=== PATIENT | male | born 1990 | race Caucasian/White ===

== ENCOUNTER 2019-07-20 04:20 | Inpatient (IN) | payer MEDICAID, OTHER ==
[2019-07-20] VITALS (7 sets, daily range): BP systolic 117–148; BP diastolic 81–98
[~2019-07-20] VITALS: Ht 177.8 cm; Wt 99.3 kg
[2019-07-20] MEDS ORDERED: NACL 0.9% 1,000 ML IV ONE (04:25)
[2019-07-20 04:37] LABS: BASOPHILS # (AUTO) 0.1 K/uL (0.00-0.22); BASOPHILS % (AUTO) 0.5 % (0.0-2.0); EOSINOPHILS # (AUTO) 0.1 K/uL (0-0.4); EOSINOPHILS % (AUTO) 1.1 % (0.0-4.0); HEMATOCRIT 45.6 % (36-52); HEMOGLOBIN 15.6 g/dL (12.0-18.0); LYMPHOCYTES # (AUTO) 3.8 K/uL (2.0-11.5); LYMPHOCYTES % (AUTO) 33.7 % (20.5-51.1); MEAN CORPUSCULAR HEMOGLOBIN 30 pg (27-31); MEAN CORPUSCULAR HGB CONC 34 g/dL (33-37); MEAN CORPUSCULAR VOLUME 88.4 fL (80-94); MONOCYTES # (AUTO) 0.6 K/uL (0.8-1.0); MONOCYTES % (AUTO) 5.4 % (1.7-9.3); NEUTROPHILS # (AUTO) 6.8 K/uL (1.8-7.7); NEUTROPHILS % (AUTO) 59.3 % (42.2-75.2); PLATELET COUNT (AUTO) 261 K/uL (140-450); RED BLOOD CELL COUNT(AUTO) 5.16 MIL/uL (4.20-6.10); RED CELL DISTRIBUTION WIDTH 13.2 % (11.6-13.7); WHITE BLOOD COUNT (AUTO) 11.4 K/uL (4.8-10.8)
--- NOTE | 2019-07-20 04:43 | NUR ---
PATIENT PRESENTS TO ED BIBA FROM HOME. PER , PT BECAME STIFF AND WAS SHAKING IN BED, FELL TO FLOOR. LASTED 15 MINUTES. PT FOUND ON LEFT SIDE ON FLOOR BY EMS; ORAL SECRETIONS NOTED. NO ORAL TRAUMA, INCONTINENCE. PT ALOC ON SCENE. PT ARRIVES AWAKE, A/O TO PERSON, DATE, PLACE. CONFUSION/DISOREINTATION ABOUT EVENT. NO PRIOR HX OF SEIZURES. PMH-- DENIES RX-- DENIES . PT IN BED WITH SEIZURE PADS . DENIES N/V/D; SKIN IS PINK/WARM/DRY; AAOX4; LUNGS CLEAR BL; HR EVEN AND REGULAR; PT DENIES ANY FEVER, CP, SOB, OR COUGH AT THIS TIME; PATIENT STATES PAIN OF 0/10 AT THIS TIME; VSS; PATIENT POSITIONED FOR COMFORT; HOB ELEVATED; BEDRAILS UP X2; BED DOWN. ER MD MADE AWARE OF PT STATUS.
[2019-07-20 04:46] LABS: ANION GAP 23.4 (8-16); CARBON DIOXIDE 18.5 mmol/L (21-32); CHLORIDE 101 mmol/L (98-107); CREATININE 1.1 mg/dL (0.7-1.3); GFR ARICAN-AMERICAN 101 mL/min (>90); GLUCOSE 156 mg/dL (74-106); POTASSIUM 3.9 mmol/L (3.5-5.1); SODIUM SERUM 139 mmol/L (136-145); UREA NITROGEN, BLOOD 9 mg/dL (7-18)
[2019-07-20 04:52] LABS: ALBUMIN 4.1 g/dL (3.4-5.0); ASPARTATE AMINOTRANSFERASE 30 U/L (15-37); TOTAL BILIRUBIN 0.5 mg/dL (0.0-1.0)
[2019-07-20 04:54] LABS: ACETAMINOPHEN < 0.5 ug/ml (10-30); SALICYLATE < 2.8 mg/dL (2.8-20.0)
--- NOTE | 2019-07-20 04:55 | NUR ---
PT IN CT
[2019-07-20 05:16] LABS: CREATINE KINASE MB 3.2 ng/mL (0-3.6)
--- NOTE | 2019-07-20 05:18 | NUR ---
PT BACK FROM CT
[2019-07-20 05:20] LABS: BILIRUBIN,URINE NEGATIVE (NEGATIVE); BLOOD, URINE 2+ (NEGATIVE); COLOR,URINE YELLOW (YELLOW); LEUKOCYTE ESTERASE ,URINE NEGATIVE (NEGATIVE); NITRITE, URINE NEGATIVE (NEGATIVE); UGLUCOSE NEGATIVE (NEGATIVE)
[2019-07-20 05:24] LABS: BARBITURATE, URINE NEG. ng/ml (NEG <=200); BENZODIAZEPINE, URINE NEG. ng/mL (NEG <=200); CANNABINOID, URINE NEG. ng/mL (NEG <=50); COCAINE, URINE NEG. ng/mL (NEG <=300); OPIATE, URINE NEG. ng/mL (NEG <=2000); PHENCYCLIDINE SCREEN,URINE NEG. ng/mL (NEG <=25)
[2019-07-20] MEDS ORDERED: ACETAMINOPHEN 325 MG TAB PO PRN (05:45)
[2019-07-20] MEDS ORDERED: HYDROcodone/APAP 5/325 MG 1 TAB TAB PO PRN (05:45)
[2019-07-20] MEDS ORDERED: DOCUSATE SODIUM 100 MG GELCAP PO PRN (05:45)
[2019-07-20] MEDS ORDERED: ONDANSETRON 4 MG/2 ML VIAL IM/IVP PRN (05:45)
[2019-07-20 05:46] LABS: APPEARANCE,URINE SLIGHTLY HAZY (CLEAR)
[2019-07-20 05:47] LABS: RBC,URINE 0-5 /HPF (0-5); WBC,URINE 0-5 /HPF (0-5)
--- NOTE | 2019-07-20 06:10 | NUR ---
ADMITTING MD AT BEDSIDE. PT APPEARS TO BE IN NO DISTRESS AT THIS TIME. VSS. NO CHANGES FROM PREVIOUS ASSESSMENT. WILL CONTINUE TO MONITOR.
--- NOTE | 2019-07-20 06:30 | NUR ---
RECD. FROM ER VIA BED, AWAKE, A/OX4, MARTINIQUAIS SPEAKING. RESPIRATION EVEN AND UNLABORED. IV SALINE LOCK AT THE RIGHT AC, G18, PATENT AND INTACT. PER ER NURSE REPORT PATIENT HAD SEIZURE FOR THE FIRST TIME LASTING 15 MINUTES AT HOME. PATIENT IS ABLE TO AMBULATORY AND INDEPENDENT. DENIES PAIN 0/10. SR ON TELEMETRY MONITORING, HR - 65. VS STABLE. WILL ENDORSED TO AM NURSE FOR ADMISSION.
--- NOTE | 2019-07-20 06:46 | NUR ---
Patient will be admitted to care of DR. REYNOLDS. Admited to TELE. Will go to [facility]. Belongings list completed. Report to RANDY LEÓN.
--- NOTE | 2019-07-20 07:20 | NUR ---
ENDORSED TO AVEL OROZCO FOR ADMISSION AND CONTINUITY OF CARE.
--- NOTE | 2019-07-20 07:21 | NUR ---
Received bedside report from pm nurse Wendy. Pt resting in bed, aaox4, verbally responsive, at bedside with pt. Right AC IV saline lock intact & asymptomatic. Call light within reach. Bed alarm on.
[2019-07-20] MEDS ORDERED: NACL 0.9% 1,000 ML IV SCH (08:15)
[2019-07-20] MEDS: NACL 0.9% 1,000 ML IV SCH ×2 (08:48→18:22)
[2019-07-20] MEDS: levETIRAcetam 1,000 MG in NACL 0.9% 100 ML IV SCH ×2 (09:51→21:12)
--- NOTE | 2019-07-20 10:43 | NUR ---
Pt noted with intermittent dry cough, diminished lung sounds to left lower lung, all other lobes clear. Pt requests for cough syrup. Dr. Donis notified & will relay message to Dr Zelaya.
[2019-07-20 10:53] LABS: CHOL/HDL RATIO 4.9 (1-4.5); MAGNESIUM 2.2 mg/dL (1.8-2.4); PHOSPHORUS 3.3 mg/dL (2.5-4.9)
[2019-07-20 10:54] LABS: THYROID STIMULATING HORMONE 1.57 uIU/mL (0.34-3.74)
[2019-07-20] MEDS ORDERED: LACTULOSE 20 GM/30 ML UDC PO SCH (11:00)
--- NOTE | 2019-07-20 11:30 | NUR ---
Pt asleep in bed, respirations even & nonlabored, arousable by auditory stimuli. Pt drowsy, but able to follow commands & able to answer questions appropriately. IV Keppra infusion completed. Bed alarm on. Call light within reach. Right AC IV intact with ongoing NS @ 100ml/h.
--- NOTE | 2019-07-20 14:05 | NUR ---
Pt asleep in bed, respirations even & nonlabored, arousable by auditory stimuli. Pt aaox4, neuro check done. at bedside. Call light within reach.
--- NOTE | 2019-07-20 15:41 | NUR ---
FNS CONSULT HAS BEEN RECEIVED. PATIENT HAS BEEN SCREENED AND CATEGORIZED HIGH NUTRITION RISK. PATIENT WILL BE SEEN WITHIN 1-2 DAYS OF ADMISSION. 07/20/19-07/21/[address]
--- NOTE | 2019-07-20 19:25 | NUR ---
Report given to pm nurse Todd. Pt resting in bed, no signs of distress. at bedside.
--- NOTE | 2019-07-20 19:30 | NUR ---
RECEIVED BEDSIDE REPORT FROM DAY SHIFT NURSE. PATIENT IS AWAKE, ALERT, AND COOPERATIVE. RESPIRATION EVEN UNLABORED ON ROOM AIR. NO DISTRESS NOTED. SKIN IS WARM AND DRY. IV PATENT AND INTACT. DENIES PAIN. FAMILY AT BEDSIDE. ALL SAFETY MEASURES IN PLACE. PLAN OF CARE WAS DISCUSSED. BED IS AT LOW POSITION. CALL LIGHT WITHIN REACH AND VERBALIZES ITS USE. WILL CONTINUE TO MONITOR.
--- NOTE | 2019-07-20 20:00 | NUR ---
INITIAL ASSESSMENT DONE. VITALS WERE TAKEN. PATIENT IN STABLE CONDITION. NO SEIZURE NOTED AT THIS TIME. WILL CONTINUE TO MONITOR.
--- NOTE | 2019-07-20 21:00 | NUR ---
ALL SCHEDULED MEDS WERE GIVEN PER ORDER. NO ASE NOTED. WILL CONTINUE TO MONITOR.
[2019-07-20] MEDS: LACTULOSE 20 GM/30 ML UDC PO SCH (21:12)
[2019-07-20 21:55] LABS: PROTHROMBIN TIME 9.7 secs (10.8-13.4)
--- NOTE | 2019-07-20 22:30 | NUR ---
PATIENT SLEEPING RESPIRATION EVEN UNLABORED ON ROOM AIR. NO DISTRESS NOTED. CALL LIGHT WITHIN REACH. WILL CONTINUE TO MONITOR.
[2019-07-21] VITALS: BP 117/75
--- NOTE | 2019-07-21 | NUR ---
VITALS WERE TAKEN. PATIENT IN STABLE CONDITION. NO DISTRESS NOTED. WILL CONTINUE TO MONITOR.
--- NOTE | 2019-07-21 01:56 | NUR ---
CHECKED ON PATIENT. PATIENT SLEEPING RESPIRATION EVEN UNLABORED ON ROOM AIR. NO DISTRESS NOTED. WILL CONTINUE TO MONITOR.
[2019-07-21] MEDS: NACL 0.9% 1,000 ML IV SCH ×2 (03:52→14:00)
[2019-07-21 04:00] VITALS: BP 160/55
--- NOTE | 2019-07-21 04:06 | NUR ---
VITALS WERE TAKEN. PATIENT IN STABLE CONDITION. NO DISTRESS NOTED. SITTER AT BEDSIDE. WILL CONTINUE TO MONITOR.
[2019-07-21 06:07] LABS: T4 (THYROXINE) 6.1 ug/dL (4.5-12.0)
--- NOTE | 2019-07-21 07:12 | NUR ---
ENDORSED PATIENT TO DAY SHIFT NURSE. PATIENT IN STABLE CONDITION.
[2019-07-21 07:21] LABS: BASOPHILS % (AUTO) 0.3 % (0.0-2.0); EOSINOPHILS # (AUTO) 0.1 K/uL (0-0.4); EOSINOPHILS % (AUTO) 1.1 % (0.0-4.0); HEMATOCRIT 40.5 % (36-52); HEMOGLOBIN 13.9 g/dL (12.0-18.0); LYMPHOCYTES # (AUTO) 1.9 K/uL (2.0-11.5); MEAN CORPUSCULAR HEMOGLOBIN 30 pg (27-31); MEAN CORPUSCULAR HGB CONC 34 g/dL (33-37); MEAN CORPUSCULAR VOLUME 87.4 fL (80-94); MONOCYTES # (AUTO) 0.5 K/uL (0.8-1.0); MONOCYTES % (AUTO) 5.9 % (1.7-9.3); NEUTROPHILS # (AUTO) 5.5 K/uL (1.8-7.7); NEUTROPHILS % (AUTO) 68.7 % (42.2-75.2); PLATELET COUNT (AUTO) 222 K/uL (140-450); RED BLOOD CELL COUNT(AUTO) 4.63 MIL/uL (4.20-6.10); RED CELL DISTRIBUTION WIDTH 13.1 % (11.6-13.7)
--- NOTE | 2019-07-21 07:40 | NUR ---
Received report from mold shifter nurse. Pt in bed. no C/O pain. no distress. Call light in reach.
[2019-07-21 07:56] LABS: ANION GAP 12.8 (8-16); CARBON DIOXIDE 26.8 mmol/L (21-32); CREATININE 0.7 mg/dL (0.7-1.3); POTASSIUM 3.6 mmol/L (3.5-5.1)
[2019-07-21 08:00] VITALS: BP 123/89
[2019-07-21 08:04] LABS: MAGNESIUM 1.8 mg/dL (1.8-2.4); PHOSPHORUS 2.7 mg/dL (2.5-4.9)
[2019-07-21] MEDS ORDERED: MAG SULF 2000 MG/WATER PREMIX 50 ML IV SCH (09:00)
--- NOTE | 2019-07-21 09:00 | NUR ---
Spoke with Dr Zelaya. Reported that phosphate and magnesium were normal. Dr Zelaya requested to hold off on magnesium sulfate. and K Phosphate.
[2019-07-21] MEDS: LACTULOSE 20 GM/30 ML UDC PO SCH (09:09)
[2019-07-21] MEDS: levETIRAcetam 1,000 MG in NACL 0.9% 100 ML IV SCH (09:10)
[2019-07-21] MEDS ORDERED: POTASSIUM PHOSPHATE 15 MM in NACL 0.9% 250 ML IV SCH (11:00)
--- NOTE | 2019-07-21 11:00 | NUR ---
Pt resting in bed. No signs of distress. No C/O pain. Call light in reach.
[2019-07-21 12:00] VITALS: BP 128/86
--- NOTE | 2019-07-21 13:47 | NUR ---
Pt resting in bed. No signs of distress. No C/O pain. Call light in reach.
[2019-07-21] MEDS ORDERED: LEVE750T3 PO (14:07)
[2019-07-21] MEDS ORDERED: LACT10SO11 PO (14:07)
--- NOTE | 2019-07-21 14:34 | NUR ---
07/21/19 RD INITIAL ASSESSMENT COMPLETED PLEASE REFER TO NUTRITION ASSESSMENT UNDER CARE ACTIVITY FOR ESTIMATED NUTRITIONAL NEEDS. 1. CONTINUE REGULAR DIET TOLERATED 2. RD PROVIDED FOOD AND DRUG INTERACTION EDUCATION 3. RD TO FOLLOW-UP 5-7 DAYS, LOW RISK [address]FR[address]
--- NOTE | 2019-07-21 15:45 | NUR ---
Discharge instructions given to patient via [employer] cad technician, Home Health Scheduler Jay # [id number]. IV line removed. No signs of bleeding. Heart monitor removed. will take him home at 1630. Pt stable. No complains of pain.
--- NOTE | 2019-07-21 16:30 | NUR ---
Pt walked to the entrance with a steady gait. Belonging with patient. No complains of pain.
== END 2019-07-21 16:30 | disposition home or self-care (01) | DRG 53 ==
LOC: MED 04:20 → MTU 05:47
PROVIDERS: ADMIT Family Medicine; ATTEND Family Medicine
DX: G40.89 Other seizures (principal); R65.11 Systemic inflammatory response syndrome (SIRS) of non-infectious origin with acute organ dysfunction; K72.90 Hepatic failure, unspecified without coma; E66.9 Obesity, unspecified; Z83.3 Family history of diabetes mellitus; Z68.31 Body mass index [BMI] 31.0-31.9, adult; E78.5 Hyperlipidemia, unspecified; Z82.49 Family history of ischemic heart disease and other diseases of the circulatory system
CPT/HCPCS: 36415; 36600; 70450; 71045; 76770; 80048; 80053; 80305; 81001; 82140; 82150; 82550; 82553; 82803; 83036; 83605; 83655; 83690; 83735; 83880; 84100; 84436; 84443; 84479; 84484; 84550; 85025; 85610; 85730; 87040; 87081; 93005; 93880; 95816; 99285; G0480; G0482; J1953; J7030; Q0092

== ENCOUNTER 2020-09-13 23:30 | Emergency (ER) | payer MEDICAID ==
[~2020-09-13] VITALS: Ht 154.9 cm; Wt 86.2 kg
[~2020-09-13 23:30] MED LIST: LACT10SO11 PO; LEVE750T3 PO
--- NOTE | 2020-09-13 23:31 | NUR ---
BIBA TAKEN TO BED #7
--- NOTE | 2020-09-13 23:35 | NUR ---
PT BIBA s/p tonic clonic seizure at home. per EMS patient was in post ictal state for 5 mins. pt currently aox4. no s/s of distress. pt reports having one seizure episode last year and was on keppra for some time. Patient not currently on any meds. Patient denies other medical hx
[2020-09-13 23:38] VITALS: BP 134/90
[2020-09-13] MEDS ORDERED: NACL 0.9% 1,000 ML IV ONE (23:55)
--- NOTE | 2020-09-13 23:58 | NUR ---
Patient being evaluated by Dr Calderon
[2020-09-14] MEDS ORDERED: levETIRAcetam 1,000 MG in NACL 0.9% 100 ML IV ONE ×2
[2020-09-14] MEDS ORDERED: levETIRAcetam 100 MG/ML VIAL IV ONE (00:18)
[2020-09-14 00:29] LABS: BASOPHILS # (AUTO) 0.1 K/uL (0.00-0.22); BASOPHILS % (AUTO) 0.8 % (0.0-2.0); EOSINOPHILS # (AUTO) 0.2 K/uL (0-0.4); EOSINOPHILS % (AUTO) 2.8 % (0.0-4.0); HEMATOCRIT 42.1 % (36-52); HEMOGLOBIN 14.6 g/dL (12.0-18.0); MEAN CORPUSCULAR HEMOGLOBIN 30 pg (27-31); MEAN CORPUSCULAR HGB CONC 35 g/dL (33-37); MEAN CORPUSCULAR VOLUME 85.9 fL (80-94); MONOCYTES # (AUTO) 0.5 K/uL (0.8-1.0); MONOCYTES % (AUTO) 6.4 % (1.7-9.3); NEUTROPHILS # (AUTO) 4.6 K/uL (1.8-7.7); PLATELET COUNT (AUTO) 266 K/uL (140-450); RED BLOOD CELL COUNT(AUTO) 4.91 MIL/uL (4.20-6.10); RED CELL DISTRIBUTION WIDTH 12.9 % (11.6-13.7); WHITE BLOOD COUNT (AUTO) 8.5 K/uL (4.8-10.8)
[2020-09-14 00:39] LABS: BARBITURATE, URINE NEGATIVE ng/ml (NEG <=200); BENZODIAZEPINE, URINE NEGATIVE ng/mL (NEG <=200); CANNABINOID, URINE NEGATIVE ng/mL (NEG <=50); COCAINE, URINE NEGATIVE ng/mL (NEG <=300); OPIATE, URINE NEGATIVE ng/mL (NEG <=2000); PHENCYCLIDINE SCREEN,URINE NEGATIVE ng/mL (NEG <=25)
[2020-09-14 00:39] LABS: ALBUMIN 4.2 g/dL (3.4-5.0); ANION GAP 12.6 (8-16); ASPARTATE AMINOTRANSFERASE 26 U/L (15-37); CARBON DIOXIDE 30.1 mmol/L (21-32); CHLORIDE 101 mmol/L (98-107); CREATININE 1.1 mg/dL (0.6-1.3); GFR ARICAN-AMERICAN 100 mL/min (>90); GLUCOSE 107 mg/dL (74-106); POTASSIUM 3.7 mmol/L (3.5-5.1); SODIUM SERUM 140 mmol/L (136-145); TOTAL BILIRUBIN 0.4 mg/dL (0.0-1.0); UREA NITROGEN, BLOOD 12 mg/dL (7-18)
[2020-09-14 00:40] LABS: ACETAMINOPHEN < 0.5 ug/ml (10-30); SALICYLATE < 2.8 mg/dL (2.8-20.0)
--- NOTE | 2020-09-14 00:50 | NUR ---
Dr. Calderon examining patient.
[2020-09-14 02:07] VITALS: BP 147/96
--- NOTE | 2020-09-14 02:08 | NUR ---
Patient discharged with v/s stable. Written and verbal after care instructions given and explained. Patient alert, oriented and verbalized understanding of instructions. Ambulatory with steady gait. All questions addressed prior to discharge. ID band removed. Patient advised to follow up with PMD. Rx of Kejuliano given. Patient educated on indication of medication including possible reaction and side effects. Opportunity to ask questions provided and answered.
== END 2020-09-14 02:08 | disposition home or self-care (01) ==
LOC: MED 23:30
DX: R56.9 Unspecified convulsions (principal); R03.0 Elevated blood-pressure reading, without diagnosis of hypertension; Z79.899 Other long term (current) drug therapy
CPT/HCPCS: 36415; 80053; 80305; 82948; 85025; 93005; 96360; 99284; G0480; G0482; J1953; J7030; 99283

== ENCOUNTER 2024-04-10 22:35 | Emergency (ER) | payer MEDICAID, OTHER ==
[~2024-04-10] VITALS: Ht 172.7 cm; Wt 95.3 kg
[2024-04-10 22:41] VITALS: BP 174/111; PULSE 76; RESP 16; TEMP 97.6; O2SAT 99
[2024-04-10 22:50] VITALS: BP 174/111; PULSE 76; RESP 16; TEMP 97.6
[2024-04-10 23:00] VITALS: O2SAT 98
[2024-04-11] MEDS ORDERED: NAPR-337 PO (00:17)
== END 2024-04-11 00:26 | disposition home or self-care (01) ==
LOC: MED 22:35
DX: S13.4XXA Sprain of ligaments of cervical spine, initial encounter (principal); Z79.2 Long term (current) use of antibiotics; Z79.899 Other long term (current) drug therapy; V43.92XA Unspecified car occupant injured in collision with other type car in traffic accident, initial encounter; Y93.89 Activity, other specified; Y92.89 Other specified places as the place of occurrence of the external cause; Y99.8 Other external cause status
CPT/HCPCS: 72050; 72100; 99284